=== PATIENT | male | born 2000 | race Two or more races ===

== ENCOUNTER 2019-07-27 14:34 | Emergency (ER) | payer MEDICAID, OTHER ==
[~2019-07-27] VITALS: Ht 170.2 cm; Wt 74.8 kg
[2019-07-27 15:45] VITALS: BP 125/77
[2019-07-27] MEDS ORDERED: cefTRIAXone SOD 1,000 MG VL IM ONE (16:15)
== END 2019-07-27 16:49 | disposition home or self-care (01) ==
LOC: ER 14:34
DX: S01.532A Puncture wound without foreign body of oral cavity, initial encounter (principal); J03.90 Acute tonsillitis, unspecified; X58.XXXA Exposure to other specified factors, initial encounter; Y93.89 Activity, other specified; Y92.89 Other specified places as the place of occurrence of the external cause; Y99.8 Other external cause status
CPT/HCPCS: 71046; 96372; 99283; J0696